=== PATIENT | female | born 2000 | race African-American/Black ===

== ENCOUNTER 2022-08-11 00:08 | Emergency (ER) | payer OTHER ==
[2022-08-11 00:30] VITALS: BP 106/65; PULSE 86; RESP 18; TEMP 98.7; BMI 34.5
[2022-08-11] MEDS ORDERED: ACETAMINOPHEN 325 MG TABLET (FP) PO ONE (01:50)
[2022-08-11] MEDS ORDERED: ACETAMINOPHEN 325 MG TABLET (FP) ONE (03:19)
== END 2022-08-11 05:39 | disposition home or self-care (01) ==
LOC: JER 00:08
DX: R05.9 Cough, unspecified (principal)
CPT/HCPCS: 0241U-QW; 71046-TC-FY; 84703; 87651; 99283-25

== ENCOUNTER 2023-08-23 15:31 | Emergency (ER) | payer OTHER ==
[2023-08-23 15:39] VITALS: BP 110/61; PULSE 75; RESP 20; TEMP 97.6; BMI 34.9
== END 2023-08-23 16:39 | disposition home or self-care (01) ==
LOC: JERFT 15:31
DX: R05.9 Cough, unspecified (principal); R09.81 Nasal congestion; H92.09 Otalgia, unspecified ear; U07.1 COVID-19
CPT/HCPCS: 0241U-QW; 87651; 99283-25